=== PATIENT | female | born 1965 | race Caucasian/White ===

== ENCOUNTER → 2017-10-18 | Outpatient (CLI) | payer OTHER | END | disposition home or self-care (01) | LOC: LAB EV 11:49 | DX: N39.0 Urinary tract infection, site not specified (principal) | CPT/HCPCS: 87077; 87086; 87186 ==

== ENCOUNTER → 2018-02-20 | Outpatient (CLI) | payer SELFPAY | END | disposition home or self-care (01) | LOC: LAB EV 12:25 → LAB SHORT 12:25 | DX: L08.9 Local infection of the skin and subcutaneous tissue, unspecified (principal) | CPT/HCPCS: 87070; 87205 ==

== ENCOUNTER → 2018-08-26 | Outpatient (CLI) | payer OTHER ==
[2018-08-27 14:08] LABS: HPV 16 Negative (Negative); HPV 18 Negative (Negative); HPV OTHER HR TYPES Negative (Negative)
== END | disposition home or self-care (01) ==
LOC: LAB SHORT 09:23 → LAB 09:23
PROVIDERS: Nurse Practitioner Obstetrics & Gynecology
DX: Z01.419 Encounter for gynecological examination (general) (routine) without abnormal findings (principal)
CPT/HCPCS: 87624; G0123

== ENCOUNTER → 2018-08-29 | Outpatient (CLI) | payer OTHER ==
[2018-08-29 16:14] LABS: BASOPHILS ABSOLUTE AUTO 0.02 K/mm3 (0.00-0.23); BASOPHILS PERCENT AUTO 0 % (0-2); EOSINOPHILS PERCENT AUTO 2 % (0-6); Hematocrit 37.9 % (33.0-51.0); Hemoglobin 12.8 g/dL (11.5-16.0); IMMATURE GRAN ABSOLUTE AUTO 0.01 K/mm3 (0.00-0.10); IMMATURE GRAN PERCENT AUTO 0 % (0-1); LYMPHOCYTES PERCENT AUTO 43 % (21-46); MONOCYTES ABSOLUTE AUTO 0.35 K/mm3 (0.16-1.47); MONOCYTES PERCENT AUTO 8 % (4-13); Mean Corpuscular HGB 29.5 pg (26.0-34.0); Mean Corpuscular HGB Conc 33.8 g/dL (31.5-36.5); Mean Corpuscular Volume 87 fL (80-100); NEUTROPHILS ABSOLUTE AUTO 2.07 K/mm3 (1.96-9.15); NEUTROPHILS PERCENT AUTO 47 % (41-73); Platelet Count 206 K/mm3 (150-400); RDW Coefficient Variation 13.1 % (11.7-14.2); RDW Standard Deviation 41.5 fL (35.1-46.3); Red Blood Cell Count 4.34 M/mm3 (3.80-5.20); White Blood Cell Count 4.45 K/mm3 (4.00-11.30)
[2018-08-29 16:39] LABS: Alanine Aminotransfer (ALT/SGP 28 U/L (12-78); Albumin, Blood 4.1 g/dL (3.4-5.0); Albumin/Globulin Ratio 1.4 (0.8-1.8); Alk Phos 54 U/L (40-126); Anion Gap 7 mmol/L (6-16); Aspartate Aminotrans (AST/SGOT 22 U/L (12-37); Bilirubin, Total 0.3 mg/dL (0.1-1.0); Blood Urea Nitrogen 12 mg/dL (8-24); Bun/Creatinine Ratio 10.4 (12.0-20.0); CO2, Blood 31 mmol/L (21-32); CPK Creatine Kinase 167 U/L (26-192); Calcium, Blood 9.7 mg/dL (8.5-10.1); Chloride, Blood 100 mmol/L (98-108); Creatinine, Blood 1.15 mg/dL (0.40-1.00); Free Thyroxine 0.99 ng/dL (0.70-1.60); Globulin, Blood 2.9 g/dL (2.2-4.0); Glomerular Filtration Rate 49 (60-); Glucose, Blood 86 mg/dL (70-99); Potassium, Blood 3.9 mmol/L (3.5-5.5); Sodium, Blood 138 mmol/L (136-145); Thyroid Stimulating Hormone 1.529 uIU/mL (0.360-4.800)
[2018-08-29 16:40] LABS: Troponin I <0.017 ng/mL (0.000-0.040)
== END ==
LOC: LAB EV 16:09 → LAB SHORT 16:09
PROVIDERS: General Practice
DX: R07.9 Chest pain, unspecified (principal); R53.81 Other malaise
CPT/HCPCS: 80053; 82550; 84439; 84443; 84484; 85025

== ENCOUNTER → 2022-07-02 | Outpatient (CLI) | payer OTHER | END | disposition home or self-care (01) | LOC: LAB 09:20 → LAB SHORT 09:20 | DX: C44.612 Basal cell carcinoma of skin of right upper limb, including shoulder (principal); C44.319 Basal cell carcinoma of skin of other parts of face | CPT/HCPCS: 88305 ==

== ENCOUNTER 2022-07-19 10:49 | Day surgery (SDC) | payer OTHER ==
[~2022-07-19] VITALS: Ht 172.7 cm; Wt 81.1 kg
[2022-07-19] MEDS ORDERED: LOSA50 PO (11:28)
[2022-07-19] MEDS ORDERED: VALA500 PO (11:29)
== END 2022-07-19 14:48 | disposition home or self-care (01) ==
LOC: ORSCSDS 10:49
PROVIDERS: Podiatrist Foot & Ankle Surgery
PROC: 0JBR0ZX Excision of Left Foot Subcutaneous Tissue and Fascia, Open Approach, Diagnostic (ICD-10-PCS; principal; 2022-07-19 12:00)
DX: G57.82 Other specified mononeuropathies of left lower limb (principal); Z79.899 Other long term (current) drug therapy
CPT/HCPCS: 88304; J0171; J0690; J1100; J2250; J2405; J2704; J2765; J2795; J3010; J7120

== ENCOUNTER → 2022-08-15 | Outpatient (CLI) | payer OTHER ==
[~2022-08-15] MED LIST: LOSA50 PO; VALA500 PO
== END ==
LOC: PLD 15:49 → LAB SHORT 15:49
DX: C44.612 Basal cell carcinoma of skin of right upper limb, including shoulder (principal)
CPT/HCPCS: 88305

== ENCOUNTER 2022-08-16 12:01 | Day surgery (SDC) | payer OTHER ==
[~2022-08-16] VITALS: Ht 172.7 cm; Wt 81.7 kg
--- NOTE | 2022-08-16 14:54 | NUR ---
08/16/22 1452 Dario Allison S IV WAS STARTED IN THE LEFT WRIST
== END 2022-08-16 15:20 | disposition home or self-care (01) ==
LOC: ORSCSDS 12:01
PROVIDERS: Podiatrist Foot & Ankle Surgery
PROC: 01BG0ZZ Excision of Tibial Nerve, Open Approach (ICD-10-PCS; principal; 2022-08-16 13:30)
DX: G57.61 Lesion of plantar nerve, right lower limb (principal); I10 Essential (primary) hypertension; Z79.899 Other long term (current) drug therapy
CPT/HCPCS: 88304; J0690; J1100; J2250; J2704; J2795; J3010; J7120

== ENCOUNTER → 2022-08-29 | Outpatient (CLI) | payer OTHER | END | disposition home or self-care (01) | LOC: PLD 12:50 → LAB SHORT 12:50 | DX: L81.4 Other melanin hyperpigmentation (principal) | CPT/HCPCS: 88305 ==

== ENCOUNTER → 2022-10-04 | Outpatient (CLI) | payer OTHER ==
[2022-10-04 18:51] LABS: Microalbumin, Urine Quant. <5.000 mg/L (0.000-20.000); Protein, Urine Quantitative <5.0 mg/dL (0.0-11.9)
== END | disposition home or self-care (01) ==
LOC: LAB 15:51 → LAB SHORT 15:51 → LAB FUT 09-23 10:20
PROVIDERS: Internal Medicine Nephrology
DX: N18.2 Chronic kidney disease, stage 2 (mild) (principal); D63.1 Anemia in chronic kidney disease; N25.81 Secondary hyperparathyroidism of renal origin; E55.9 Vitamin D deficiency, unspecified; E78.00 Pure hypercholesterolemia, unspecified; R76.9 Abnormal immunological finding in serum, unspecified; R94.5 Abnormal results of liver function studies; R94.6 Abnormal results of thyroid function studies
CPT/HCPCS: 81050; 82043; 82570; 84156

== ENCOUNTER → 2023-01-24 | Outpatient (CLI) | payer OTHER ==
[2023-01-27 15:08] LABS: HPV 16 Negative (Negative); HPV 18 Negative (Negative); HPV OTHER HR TYPES Negative (Negative)
== END | disposition home or self-care (01) ==
LOC: LAB 17:16 → LAB SHORT 17:16
PROVIDERS: Obstetrics & Gynecology
DX: Z01.419 Encounter for gynecological examination (general) (routine) without abnormal findings (principal)
CPT/HCPCS: 87624; G0145

== ENCOUNTER 2023-08-08 11:03 | Day surgery (SDC) | payer OTHER ==
[~2023-08-08] VITALS: Ht 175.3 cm; Wt 78.7 kg
[2023-08-08] MEDS ORDERED: ALBU90OI (11:40)
[2023-08-08] MEDS ORDERED: CLONAZEPAM1 MG PO (11:41)
[2023-08-08] MEDS ORDERED: ZOLPIDEM TART6.25 MG PO (11:41)
[2023-08-08] MEDS ORDERED: ONDA4ODT (11:42)
[2023-08-08 13:46] VITALS: BP 126/104
== END 2023-08-08 14:21 | disposition home or self-care (01) ==
LOC: ORSCSDS 11:03
PROVIDERS: Podiatrist Foot & Ankle Surgery
PROC: 4A1104G Monitoring of Peripheral Nervous Electrical Activity, Intraoperative, Open Approach (ICD-10-PCS; principal; 2023-08-08 12:30)
DX: G57.62 Lesion of plantar nerve, left lower limb (principal); I10 Essential (primary) hypertension; Z79.899 Other long term (current) drug therapy
CPT/HCPCS: 88304; J0171; J0690; J1040; J2001; J2250; J2704; J2795; J3010; J7120